=== PATIENT | female | born 1950 ===

== ENCOUNTER 2025-01-02 19:17 | Inpatient (IN) | payer MEDICARE, SELFPAY ==
[2025-01-02] VITALS (16 sets, daily range): BP systolic 99–159; BP diastolic 57–93
[2025-01-02] MEDS: CELEBREX 200 MG PO (14:35)
[2025-01-02] MEDS: TYLENOL 1000 MG PO (14:35)
[2025-01-02] MEDS: NORMOSOL-R/PLASMALYTE-A 1000 IV (14:36)
[2025-01-02] MEDS: EMEND 40 MG PO (14:37)
[2025-01-02 16:11] LABS: ALT (SGPT) 28 U/L (0-35); AST (SGOT) 32 U/L (14-36); Albumin 4.8 g/dl (3.5-5.0); Alkaline Phosphatase 127 U/L (38-126); Blood Urea Nitrogen 23 mg/dl (7-17); Carbon Dioxide 25 mmol/L (22-30); Chloride 105 mmol/L (98-107); Estimated Creatinine Clearance 69 ml/min; Glucose 88 mg/dl (70-99); Potassium 4.4 mmol/L (3.5-5.1); Sodium 140 mmol/L (135-145); Total Bilirubin 0.8 mg/dl (0.2-1.3); Total Protein 7.5 g/dl (6.3-8.2); eGFR > 60.00
[2025-01-02 16:15] LABS: C-Reactive Protein < 5.00 mg/L (0.0-10.00)
[2025-01-02 16:18] LABS: % Basophils 0.7 % (0-2); % Eosinophils 1.1 % (0-6); % Immature Granulocytes 0.3 % (0-0.5); % Lymphocytes 20.3 % (20.5-51.1); % Monocytes 7.9 % (1.7-9.3); % Neutrophils 69.7 % (42.2-75.2); Absolute Basophils 0.1 10^3/uL (0-0.2); Absolute Eosinophils 0.1 10^3/uL (0-0.7); Absolute Lymphocytes 1.5 10^3/uL (1.2-3.4); Absolute Monocytes 0.6 10^3/uL (0.1-0.6); Absolute Neutrophils 5.2 10^3/uL (1.4-6.5); Hematocrit 35.1 % (37.0-47.0); Hemoglobin 12.2 g/dL (12.0-16.0); Mean Corp Hgb Conc. 34.8 g/dL (33.0-37.0); Mean Corpuscular Hgb 31.4 pg (27.0-31.0); Mean Corpuscular Volume 90.2 fL (81.0-99.0); Mean Platelet Volume 10.3 fL (7.4-10.4); Nucleated Red Blood Cells % 0 %; Platelet Count 327 10^3/uL (130-400); Red Blood Cell Count 3.89 10^6/uL (4.20-5.40); Red Cell Dist. Width 12.9 % (11.5-14.5); White Blood Cell Count 7.4 10^3/uL (4.8-10.8)
[2025-01-02 17:02] LABS: Erythrocyte Sed Rate 33 mm/hour (0-20)
--- NOTE | 2025-01-02 17:30 | W.PN.SURGUPD ---
Surgical Update
Surgical Update
Patient is s/p R 2nd toe I&D and hardware explantation
-Packing to R 2nd toe, to remain intact until return to OR
-Return to OR on 01/04
-F/u 1x culture 1x pathology
-Recommend ID consult, recommend vanc/zosyn
-NWB to RLE
-Will continue to follow
--- NOTE | 2025-01-02 17:51 | HPS.HSE ---
Family Physician
-
Family Physician: INTERVIEWE UNKNOWN - PT NOT
Chief Complaint
-
2nd toe pain
History of Present Illness
74yo F with PMHX of GERD, HLD, breast CA, anxiety came for the follow up after her 2nd/3rd hammertoe corrrection with concern for worsening redness and swelling of 2nd toe. Was sent to [facility] for I&D with extraction of intramedullary implant. PeriOP
concern for presumed osteomyelitis without achieved surgical cure. Patient recovering postOP well. Did not report any fevers at home
Medical History
Past Medical History
Past Medical History: Reports Other
Additional Past Medical History:
see HPI
Past Surgical History: Reports Other
Additional Past Surgical History:
HPI
Social History
Tobacco: Non-smoker
Alcohol: None
Drug: None
Family History
Family History: Not pertinent
Allergies / Home Medications
Allergies reflects when Allergies were last updated in [employer].
Home Medications with original date entered in [employer]
Allergy/Medication List:
Allergies
Allergy/AdvReac Type Severity Reaction Status Date / Time
No Known Allergies Allergy Verified 01/02/25 14:17
Home Medications
atorvastatin 40 mg tablet (Lipitor) 40 mg PO DAILY 01/02/25
omeprazole 40 mg capsule,delayed release 40 mg PO DAILY 01/02/25
sertraline 50 mg tablet (Zoloft) 50 mg PO DAILY 01/02/25
tolterodine 2 mg tablet (Detrol) 2 mg PO DAILY 01/02/25
Review of Systems
-
History Source: Patient
A 12 point ROS was completed and negative except as noted: Yes
Physical Exam
Vital Signs
Vital Signs
Temp Pulse Resp BP Pulse Ox
96.9 F L 97 32 147/93 99
01/02/25 17:06 01/02/25 17:15 01/02/25 17:15 01/02/25 17:15 01/02/25 17:15
Physical Exam
General: Well Nourished, No Apparent Distress and Comfortable
HEENT: NormoCephalic, Anicteric and Moist mucous membranes
Respiratory: Clear; No Wheezes, Rales or Rhonchi
Cardiac: S1/S2, Regular Rhythm and Tachycardia
GI: Soft, Non Tender and Non Distended
Genito-urinary: No costovertebral tender
Musculoskeletal: No Clubbing and No Cyanosis
Skin: Warm; No Dry or Rash
Neuro: Awake, Alert, Oriented, AO x 3 and No Motor Deficits
Psych: Calm
Laboratory Results
-
01/02/25 15:44
01/02/25 15:44
Laboratory Results
Total Bilirubin 0.8 mg/dl (0.2-1.3) 01/02/25 15:44
AST 32 U/L (14-36) 01/02/25 15:44
ALT 28 U/L (0-35) 01/02/25 15:44
Alkaline Phosphatase 127 U/L (38-126) H 01/02/25 15:44
Data Reviewed
-
Lab Data: Labs Reviewed by me
Impression/Plan
-
A/P:
#R 2nd toe OM
Bcx
pedning wound Cx
Vanco/Zosyn pending ID consult
pain mgmt
NWB on RLE, use heel for transfers
ESR 33, CRP WNL
PT/OT when possible
Plan for repeated I&D on 01/04/25 by Podiatry
#GERD
#HLD
#Anxiety d/o
cont home meds
DVT ppx lovenox
Full code
I have spent at least 58min reviewing chart,test results, communication with consultants and direct patient care
[2025-01-02] MEDS: SUBLIMAZE 25 MCG IV ×2 (18:30→18:53)
[2025-01-02] MEDS: ZOSYN 50 IV (19:24)
--- NOTE | 2025-01-02 20:00 | PTCARENOTE ---
Pt arrived from PACU in bed. aaox3, drowsy and falls asleep easily. pox 98% in 2L NC. C/o mild r foot pain, states 'it's tolerable'. denies nausea. vss. oriented to room. call bustos within reach.
--- NOTE | 2025-01-02 20:06 | SUR.PHASEI ---
initially needed assist with airway - jaw lift to maintain airway and sats. nasal trumpet and oral airway. restless legs, encouraged to get another KAYLA test. O2 with sleep as sats drop to 85%, Dr Monroy advised and received continuous pulse ox
order. medicated for pain x2 with some relief. visits in pacu. blood cultures drawn and antibiotics started.
--- NOTE | 2025-01-02 20:11 | PHA.VAN.IN ---
Assessment
- Assessment
Renal Function: Unknown baseline
Concomitant Antimicrobials: ZOSYN
- Previous Dosing Experience
Previous Regimen: NONE
AUC Dosing Plan
- Dosing Variables
Dosing Weight (kg): 68
Dosing CrCl (ml/min): 69
Vd coefficient (L/kg): 0.7
- Empiric Dosing
Initial / Loading Dose: 1500MG
Maintenance Regimen: 750MG IV Q12H
Estimated AUC (mcg*h/mL): 527
Estimated Peak (mcg*h/mL): 30.1
Estimated Trough (mcg/ml): 15.3
Estimated Half Life (H): 11.2
Pharmacokinetics Vancomycin I
- -
Patient Age: 74
Patient Sex: Female
Vancomycin Day #: 1
Indication: Bone And Joint ([R] 2ND TOE OM)
Requesting Provider: ASHISH
Height / Weight:
Height 5 ft 3 in
Actual Weight 68 kg
Pertinent Past Medical History: RECENT FOOT SURGERY
- Vital Signs / Lab Results
Temp Pulse Resp BP Pulse Ox
97.3 F 94 18 99/62 99
01/02/25 19:45 01/02/25 19:45 01/02/25 19:45 01/02/25 19:45 01/02/25 19:45
Lab Results - Hematology
01/02/25 01/02/25
14:25 15:44
WBC Cancelled 7.4
Lab Results - Chemistry
01/02/25 01/02/25 01/02/25
14:25 15:20 15:44
BUN Cancelled Cancelled 23 H
Creatinine Cancelled Cancelled 0.6
Estimated Creat Clear Cancelled Cancelled 69
Albumin Cancelled Cancelled 4.8
[2025-01-02] MEDS: VANCOCIN 530 MG IV (20:40)
[2025-01-02] MEDS: LOVENOX 40 MG SC (20:42)
[2025-01-03] MEDS: ZOSYN 50 IV ×4 (01:43→20:41)
[2025-01-03 03:41] VITALS: BP 113/72
[2025-01-03] MEDS: VANCOCIN 150 IV ×2 (05:45→17:42)
[2025-01-03 07:23] LABS: % Basophils 0.1 % (0-2); % Immature Granulocytes 0.4 % (0-0.5); % Lymphocytes 7.4 % (20.5-51.1); % Monocytes 3.9 % (1.7-9.3); % Neutrophils 88.2 % (42.2-75.2); Absolute Lymphocytes 0.7 10^3/uL (1.2-3.4); Absolute Monocytes 0.4 10^3/uL (0.1-0.6); Hematocrit 33.8 % (37.0-47.0); Hemoglobin 11.5 g/dL (12.0-16.0); Mean Corpuscular Hgb 31.5 pg (27.0-31.0); Mean Corpuscular Volume 92.6 fL (81.0-99.0); Mean Platelet Volume 10.5 fL (7.4-10.4); Nucleated Red Blood Cells % 0 %; Platelet Count 322 10^3/uL (130-400); Red Blood Cell Count 3.65 10^6/uL (4.20-5.40); Red Cell Dist. Width 12.9 % (11.5-14.5); White Blood Cell Count 9.1 10^3/uL (4.8-10.8)
[2025-01-03 07:39] VITALS: BP 129/77
[2025-01-03 07:58] LABS: ALT (SGPT) 25 U/L (0-35); AST (SGOT) 29 U/L (14-36); Albumin 3.9 g/dl (3.5-5.0); Alkaline Phosphatase 105 U/L (38-126); Blood Urea Nitrogen 24 mg/dl (7-17); Calcium 9.4 mg/dl (8.4-10.2); Carbon Dioxide 26 mmol/L (22-30); Chloride 105 mmol/L (98-107); Estimated Creatinine Clearance 59 ml/min; Glucose 168 mg/dl (70-99); Iron 100 ug/dl (37-170); Potassium 4.6 mmol/L (3.5-5.1); Sodium 139 mmol/L (135-145); Total Bilirubin 0.5 mg/dl (0.2-1.3); Total Protein 6.4 g/dl (6.3-8.2); eGFR > 60.00
[2025-01-03 08:07] LABS: Percent Saturation 43 % (20-50); Total Iron Binding Capacity 228 ug/dl (265-497)
[2025-01-03 08:20] LABS: TSH 0.38 uIU/ml (0.47-4.68)
[2025-01-03 08:24] LABS: Ferritin 89.7 ng/ml (11.1-264.0)
--- NOTE | 2025-01-03 08:40 | PHA.VAN.FU ---
Vancomycin Assessment / Plan
- Assessment
Renal Function: Stable (0.7)
WBC's are: WNL (9.1)
In the past 24 hrs, patient has been: Afebrile
Concomitant Antimicrobials: Piperacillin/Tazobactam
- Dosing Plan
Continue: Vanco 750mg Q12H through 01/03/25 1800 dose
Adjust Regimen to: Vanco 1250mg Q24H Starting 01/04/25 0600
- Monitoring Plan
No level(s) ordered at this time: Consider in the next few days
- Follow Up
Pharmacy will continue to follow.
Vancomycin Follow UP
- -
Patient Age: 74
Patient Sex: Female
Vancomycin Day #: 2
Indication: Bone And Joint ([R] 2ND TOE OM)
Requesting Provider: ASHISH
Height / Weight:
Height 5 ft 3 in
Actual Weight 68 kg
Pertinent Past Medical History: RECENT FOOT SURGERY
- Vital Signs / Lab Results
Temp Pulse Resp BP Pulse Ox
98.0 F 88 20 129/77 95
01/03/25 07:39 01/03/25 07:39 01/03/25 07:39 01/03/25 07:39 01/03/25 07:39
Lab Results - Hematology
01/02/25 01/02/25 01/03/25
14:25 15:44 06:39
WBC Cancelled 7.4 9.1
Lab Results - Chemistry
01/02/25 01/02/25 01/02/25
14:25 15:20 15:44
BUN Cancelled Cancelled 23 H
Creatinine Cancelled Cancelled 0.6
Estimated Creat Clear Cancelled Cancelled 69
Albumin Cancelled Cancelled 4.8
01/03/25
06:39
BUN 24 H
Creatinine 0.7
Estimated Creat Clear 59
Albumin 3.9
[2025-01-03] MEDS: LIPITOR 40 MG PO (09:02)
[2025-01-03] MEDS: PROTONIX 40 MG PO (09:02)
--- NOTE | 2025-01-03 09:55 | W.PN.SURGUPD ---
Surgical Update
Surgical Update
74 yo F s/p right 2nd toe I&D and hardware explanation
-Will assess patient at bedside this afternoon
-Plan for OR 4/3 for repeat washout, possible closure
-Antibiotics per ID recs
-Please make patient NPO after midnight
[2025-01-03 09:57] LABS: Free T3 2.84 pg/ml (2.77-5.27); Free T4 1.15 ng/dl (0.78-2.19)
--- NOTE | 2025-01-03 10:11 | W.PN.HOSP.TC ---
Today's Communication/Plan
-
I&D in AM
cont Abx
Assessment / Plan
Assessment / Plan
74yo F with PMHX of GERD, HLD, breast CA, anxiety came for the follow up after her /3rd hammertoe corrrection with concern for worsening redness and swelling of 2nd toe. Was sent to [facility] for I&D with extraction of intramedullary implant. PeriOP
concern for presumed osteomyelitis without achieved surgical cure. XR concerning for OM due to partial erosion of the distal aspect of the proximal phalanx of the 2nd toe of the R foot
A/P:
#R 2nd toe OM
Bcx NTD
pedning wound Cx
Vanco/Zosyn pending ID consult
pain mgmt
NWB on RLE, use heel for transfers
ESR 33, CRP WNL
PT/OT when possible
Plan for repeated I&D on 01/04/25 by Podiatry
#Subclinical hyperthyrooidism
Minimally supressed TSH 0.38 - repeat TFT in 2-3 weeks
no need in medications as asymptomatic
#GERD
#HLD
#Anxiety d/o
cont home meds
DVT ppx lovenox
Full code
I have spent at least 38min reviewing chart,test results, communication with consultants and direct patient care
Anticipated Discharge: > 48 hours
Subjective/Interval History
-
Date of Service: January 03, 2025
Objective Data
-
Labs:
Laboratory Results
01/03/25
06:39
WBC 9.1
Hgb 11.5 L
Hct 33.8 L
Plt Count 322
Sodium 139
Potassium 4.6
Chloride 105
Carbon Dioxide 26
BUN 24 H
Creatinine 0.7
Glucose 168 H
Calcium 9.4
Total Bilirubin 0.5
AST 29
ALT 25
Alkaline Phosphatase 105
Vital Signs:
Vital Signs
Temp Pulse Resp BP Pulse Ox
98.0 F 88 20 129/77 95
01/03/25 07:39 01/03/25 07:39 01/03/25 07:39 01/03/25 07:39 01/03/25 07:39
I&O
01/02/25 01/03/25 01/04/25
06:59 06:59 06:59
Intake Total 650 / 650
Balance 650 / 650
Review of Systems
-
History Source: Patient
All other systems: Reviewed and negative
Physical Exam
-
General: No Apparent Distress
HEENT: Normocephalic
Cardiac: Regular Rhythm
GI: Soft, Nontender and Nondistended
Skin: Warm
Neuro: Awake, Alert, Oriented and AO x 3
Psych: Calm
--- NOTE | 2025-01-03 10:52 | CON.ID ---
Consultation
-
Date/Time Consultation Requested: 01/02/25 18:14
Date/Time Consultation Performed: 01/03/25 10:57
Requesting Provider: Dr Brown
Performing Provider: Dr Ruano
Reason for Consultation: r 2nd toe OM
Chief Complaint / Past History
Chief Complaint
right 2nd toe pain
History of Present Illness
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
weeks, no fevers or chills and was taken for I&D and extraction of intramedullary implant in same day surgery. Of note she was on cefadorxil x1 week without improvement before the decision was made to return to the OR. Perioperatively there was
concern for possible osteomyelitis.
Since arrival here he's been afebrile, bp stable, wbc 7.4 now 9.1, hgb 11.5, plt 322, L shift is noted on post op day 1, cr 0.7, crp <5, ESR 33, a1c, 01/02 foot xr: mild swelling along the second toe with partial erosion of the distal aspect of the
proximal phalanx of the second toe. These findings may be postoperative in nature although can be seen with osteomyelitis. wound culture obtained in the OR gram stain few wbc no organisms, culture pending, Plan for OR 01/04 for repeat washout,
possible closure, patient is currently on vancomycin and zosyn, ID is consulted for assistance with management.
Past History
Additional Past Medical History:
GERD, HLD, breast CA, anxiety
Additional Past Surgical History:
see hpi
Allergy History:
No Known Allergies Allergy (Verified 01/02/25 14:17)
Medications Reviewed: Yes
Social History
Tobacco: Non-Smoker
Alcohol: None
Drug: None
Family History
Family History: Not Pertinent
Review of Systems
Review of Systems
General: Negative Fever or Chills
All systems: All other systems were reviewed and were negative
Vital Signs
Temp Pulse Resp BP Pulse Ox
98.0 F 88 20 129/77 95
01/03/25 07:39 01/03/25 07:39 01/03/25 07:39 01/03/25 07:39 01/03/25 07:39
Physical Exam
Physical Exam
Constitutional: No Acute Distress
Cardiovascular: Regular Rate and S1/S2; Negative Murmur or Rub
Pulmonary: Clear and Symmetric; Negative Wheezes, Rales or Rhonchi
Gastrointestinal: Soft, Non Tender, Non Distended and Normal Bowel Sounds
Skin: Warm and Dry; Negative Rash or Jaundice
Wound: Other (dressing clean, dry, intact; did not remove as per postop instructions)
Lab / Diagnostic Study Results
01/03/25 06:39
01/03/25 06:39
Abs Immat Gran (auto) 0.0 10^3/uL (0-0.05) 01/03/25 06:39
Absolute Neuts (auto) 8.0 10^3/uL (1.4-6.5) H 01/03/25 06:39
Absolute Lymphs (auto) 0.7 10^3/uL (1.2-3.4) L 01/03/25 06:39
Absolute Monos (auto) 0.4 10^3/uL (0.1-0.6) 01/03/25 06:39
Absolute Basos (auto) 0.0 10^3/uL (0-0.2) 01/03/25 06:39
Immature Gran % 0.4 % (0-0.5) 01/03/25 06:39
Neutrophils % 88.2 % (42.2-75.2) H 01/03/25 06:39
Lymphocytes % 7.4 % (20.5-51.1) L 01/03/25 06:39
Monocytes % 3.9 % (1.7-9.3) 01/03/25 06:39
Eosinophils % 0.0 % (0-6) 01/03/25 06:39
Basophils % 0.1 % (0-2) 01/03/25 06:39
ESR 33 mm/hour (0-20) H 01/02/25 15:44
C-Reactive Protein < 5.00 mg/L (0.0-10.00) 01/02/25 15:44
Microbiology Results
Micro:
01/02/25 16:14 Wound Culture - Pending
Foot - Right Gram Stain - Preliminary
01/02/25 18:58 Blood Culture - Pending
Blood/Venous
01/02/25 18:44 Blood Culture - Pending
Blood/Venous
01/02/25 16:14 Anaerobic Culture - Pending
Foot - Right
Assessment / Plan
Possible osteomyelitis of the right 2nd toe
- hardwear has been removed
- note recent course of cefadroxil
- will follow up cultures: OR and blood
- check a1c
- note plans for return to OR 4/3 for repeat washout, possible closure
- agree with vancomycin and zosyn
- likely PICC placement tomorrow if blood cultures remain negative
- anticipate a course of home IV antibiotics x6 weeks
--- NOTE | 2025-01-03 11:02 | CM ---
Patient seen bedside, initial assessment completed. Patient is a 74yo F with PMHX of GERD, HLD, breast CA, anxiety came for the follow up after her 2nd/3rd hammertoe corrrection with concern for worsening redness and swelling of 2nd toe.
Patient reports that she resides w/ spouse in [place]- 12 steps to enter. Patient is independent w/ ambulation, no device required. Patient is independent w/ ADLs. No DME identified. 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 Denies SNF/HC hx. OP therapy in the past.
Address, point of contact and insurance verified. Patient's spouse's information clarified and updated w/ admissions
PCP: Adam Lu- provided to admissions to update
Pharmacy: [facility]
Vanco/Zosyn pending ID consult
PT/OT when able
Plan: CM will cont to follow for d/c needs
[2025-01-03] MEDS: DETROL 2 MG PO (11:06)
[2025-01-03 12:28] VITALS: BP 135/77
[2025-01-03 13:07] LABS: Glycohemoglobin (HgbA1c) 5.7 % (4.0-5.6)
[2025-01-03 15:47] VITALS: BP 118/67
[2025-01-03] MEDS: LOVENOX 40 MG SC (17:42)
[2025-01-03 19:20] VITALS: BP 117/66
[2025-01-03] MEDS: FLUSH (NSS) 2 FLUSH IV (20:41)
[2025-01-03] MEDS: ZOLOFT 50 MG PO (21:55)
[2025-01-03 23:21] VITALS: BP 147/83
[2025-01-04] VITALS (14 sets, daily range): BP systolic 110–157; BP diastolic 58–88
[2025-01-04] MEDS: ZOSYN 50 IV ×3 (01:05→20:22)
[2025-01-04] MEDS: VANCOCIN 275 MG IV (06:16)
--- NOTE | 2025-01-04 08:07 | PHA.VAN.FU ---
Vancomycin Assessment / Plan
- Assessment
Renal Function: No New Labs Today (Past two days SCr 0.6, 0.7)
WBC's are: WNL (No new labs today, past two days 7.4, 9.1)
In the past 24 hrs, patient has been: Afebrile
Concomitant Antimicrobials: Piperacillin/Tazobactam
- Dosing Plan
Continue: Vanco 1250mg Q24H
- Monitoring Plan
No level(s) ordered at this time: Consider in the next few days
- Follow Up
Pharmacy will continue to follow.
Vancomycin Follow UP
- -
Patient Age: 74
Patient Sex: Female
Vancomycin Day #: 3
Indication: Bone And Joint ([R] 2ND TOE OM)
Requesting Provider: ASHISH
Height / Weight:
Height 5 ft 3 in
Actual Weight 68 kg
Pertinent Past Medical History: RECENT FOOT SURGERY
- Vital Signs / Lab Results
Temp Pulse Resp BP Pulse Ox
98 F 80 16 144/88 98
01/04/25 07:26 01/04/25 07:26 01/04/25 07:26 01/04/25 07:26 01/04/25 07:26
Lab Results - Hematology
01/02/25 01/02/25 01/03/25
14:25 15:44 06:39
WBC Cancelled 7.4 9.1
Lab Results - Chemistry
01/02/25 01/02/25 01/02/25
14:25 15:20 15:44
BUN Cancelled Cancelled 23 H
Creatinine Cancelled Cancelled 0.6
Estimated Creat Clear Cancelled Cancelled 69
Albumin Cancelled Cancelled 4.8
01/03/25
06:39
BUN 24 H
Creatinine 0.7
Estimated Creat Clear 59
Albumin 3.9
Microbiology Results
01/02/25 18:58 Blood Culture - Preliminary
Blood/Venous No Growth in 24 hours- Final report to follow
01/02/25 18:44 Blood Culture - Preliminary
Blood/Venous No Growth in 24 hours- Final report to follow
01/02/25 16:14 Anaerobic Culture - Preliminary
Foot - Right Culture pending. Anaerobic cultures are examined after 3
days incubation. Additional information to follow.
01/02/25 16:14 Wound Culture - Preliminary
Foot - Right No growth
Gram Stain - Preliminary
--- NOTE | 2025-01-04 09:06 | W.PN.ID1 ---
Date of Service
Date of Service: January 04, 2025
Today's Communication
- agree with vancomycin and zosyn
- PICC placement when feasible
- anticipate a course of home IV antibiotics x6 weeks
Assessment / Plan
Possible osteomyelitis of the right 2nd toe
- hardwear removed 01/02
- note recent course of cefadroxil
- will follow up cultures: OR and blood - no growth to date
- a1c borderline prediabetic
- MRSA nasal screen
- note plans for return to OR today for repeat washout, possible closure
- agree with vancomycin and zosyn
- PICC placement when feasible
- anticipate a course of home IV antibiotics x6 weeks
Chief Complaint
-: Other (osteomyelitis)
Subjective / Review of Systems
afebrile
bp stable
Vital Signs / Physical Exam
Vital Signs
Vital Signs
Temp Pulse Resp BP Pulse Ox
98 F 80 16 144/88 98
01/04/25 07:26 01/04/25 07:26 01/04/25 07:26 01/04/25 07:26 01/04/25 07:26
Physical Exam
Constitutional: No Acute Distress
Cardiovascular: Regular Rate and S1/S2; Negative Murmur or Rub
Pulmonary: Clear and Symmetric; Negative Wheezes or Rales
Gastrointestinal: Soft, Non Tender, Non Distended and Normal Bowel Sounds
Skin: Warm and Dry; Negative Rash or Jaundice
Objective Data
Lab Data
Lab Results
01/03/25 06:39
01/03/25 06:39
ESR 33 mm/hour (0-20) H 01/02/25 15:44
Estimated Creat Clear 59 ml/min 01/03/25 06:39
Total Bilirubin 0.5 mg/dl (0.2-1.3) 01/03/25 06:39
AST 29 U/L (14-36) 01/03/25 06:39
ALT 25 U/L (0-35) 01/03/25 06:39
Alkaline Phosphatase 105 U/L (38-126) 01/03/25 06:39
C-Reactive Protein < 5.00 mg/L (0.0-10.00) 01/02/25 15:44
Most recent labs reviewed.
Micro Results:
01/02/25 18:58 Blood Culture - Preliminary
Blood/Venous No Growth in 24 hours- Final report to follow
01/02/25 18:44 Blood Culture - Preliminary
Blood/Venous No Growth in 24 hours- Final report to follow
01/02/25 16:14 Anaerobic Culture - Preliminary
Foot - Right Culture pending. Anaerobic cultures are examined after 3
days incubation. Additional information to follow.
01/02/25 16:14 Wound Culture - Preliminary
Foot - Right No growth
Gram Stain - Preliminary
[2025-01-04] MEDS: PROTONIX 40 MG PO (09:29)
[2025-01-04] MEDS: LIPITOR 40 MG PO (09:29)
--- NOTE | 2025-01-04 09:42 | W.PN.HOSP.TC ---
Today's Communication/Plan
-
for I&D
cont Abx
Assessment / Plan
Assessment / Plan
74yo F with PMHX of GERD, HLD, breast CA, anxiety came for the follow up after her / hammertoe corrrection with concern for worsening redness and swelling of 2nd toe. Was sent to [facility] for I&D with extraction of intramedullary implant. PeriOP
concern for presumed osteomyelitis without achieved surgical cure. XR concerning for OM due to partial erosion of the distal aspect of the proximal phalanx of the 2nd toe of the R foot. ID recommending 6 weeks of IV abx
A/P:
#R 2nd toe OM
Bcx NTD
pedning wound Cx
Vanco/Zosyn
ID consult: plan for 6 weeks of Abx - final regimen to be determined
pain mgmt
NWB on RLE, use heel for transfers
ESR 33, CRP WNL
PT/OT when possible
Plan for repeated I&D on 01/04/25 by Podiatry
#Subclinical hyperthyrooidism
Minimally supressed TSH 0.38 - repeat TFT in 2-3 weeks
no need in medications as asymptomatic
#GERD
#HLD
#Anxiety d/o
cont home meds
DVT ppx lovenox
Full code
I have spent at least 38min reviewing chart,test results, communication with consultants and direct patient care
Anticipated Discharge: > 48 hours
Subjective/Interval History
-
Date of Service: January 04, 2025
Objective Data
-
Vital Signs:
Vital Signs
Temp Pulse Resp BP Pulse Ox
98 F 80 16 144/88 98
01/04/25 07:26 01/04/25 07:26 01/04/25 07:26 01/04/25 07:26 01/04/25 07:26
I&O
01/03/25 01/04/25 01/05/25
06:59 06:59 06:59
Intake Total 650 / 650 990 / 990
Output Total 750 / 750
Balance 650 / 650 240 / 240
Review of Systems
-
History Source: Patient
All other systems: Reviewed and negative
Physical Exam
-
General: No Apparent Distress and Comfortable
HEENT: Normocephalic
Respiratory: Clear to Auscultation
GI: Soft, Nontender and Nondistended
Musculoskeletal: No Clubbing, No Cyanosis and No Edema
Neuro: Awake, Alert, Oriented and AO x 3
Psych: Calm
[2025-01-04] MEDS: DETROL 2 MG PO (10:23)
--- NOTE | 2025-01-04 13:06 | PTCARENOTE ---
pt sent to OR with family antibiotic and all belongings.
--- NOTE | 2025-01-04 14:23 | W.PN.SURGUPD ---
Surgical Update
Surgical Update
74 yo F s/p right 2nd toe washout, partial closure
-Dressings to remain C/D/I
-Patient will need 6 weeks of antibiotics, appreciate ID input
-Heel WBAT to RLE with surgical shoe
-PT/OT
-Upon discharge, will need home nursing dressing changes as follows:
3x weekly dressing changes with 1/4 inch packing (iodoform if possible) to proximal 2nd toe wound with 4x4 gauze pads, radha wrap, JOSIANE bandage
-Patient to follow up at [facility] as scheduled on 01/09.
[2025-01-04] MEDS: ZOSYN IV (14:39)
--- NOTE | 2025-01-04 15:04 | CM ---
CM following re: discharge planning.
Reviewed pt's chart,met with pt. Pt's and 2 children at bedside.
Per he and the pt were born and grew up in [place], emig[place] [facility] [facility] years ago and resided in [facility]. Per RN, pt will need 6 weeks of IV antibiotics and pt went to OR today.
CM had a meeting with pt's family in a waiting area, options of discharge plan discussed: home with home infusion therapy and VN services vs SNF. Pt's family expressed their appreciation and daughters stated that probably home with IV infusion
therapy and VN services will be preferred choice. Anyway they will tour [facility], [facility] and [facility].
D/C plan: home with home infusion therapy and VN services vs SNF. Family has SNF list.
CM will follow with discharge plan updates as hospitalization progresses
[2025-01-04] MEDS: LOVENOX 40 MG SC (17:12)
--- NOTE | 2025-01-04 17:43 | PTCARENOTE ---
Received pt from PACU, VSS, AAOx3, dressing with known old bloody drainage. Diet reordered, pt oriented to room and call bustos, pt resting comfortably in bed with family at bedside. No new orders at this time.
[2025-01-04] MEDS: ZOLOFT 50 MG PO (21:59)
[2025-01-05] VITALS (9 sets, daily range): BP systolic 132–176; BP diastolic 73–103; PULSE 98; O2SAT 100
[2025-01-05] MEDS: ZOSYN 50 IV ×2 (02:09→07:48)
[2025-01-05] MEDS: DETROL 2 MG PO (07:47)
[2025-01-05] MEDS: LIPITOR 40 MG PO (07:47)
[2025-01-05] MEDS: PROTONIX 40 MG PO (07:48)
[2025-01-05] MEDS: TYLENOL 650 MG PO ×3 (07:48→19:29)
--- NOTE | 2025-01-05 08:55 | PN.CDI ---
CDI
- -
CDI:
Physician Documentation Request
Admit Date: 01/02/25 19:17
Dear Doctor Jesus,
Patient admitted with right toe infection.
H&P: 'came for the follow up after her /3rd hammertoe correction with concern for worsening redness and swelling of 2nd toe. Was sent to [facility] for I&D with extraction of intramedullary implant. PeriOP concern for presumed osteomyelitis without
achieved surgical cure.'
01/02 Operative note: 'The previous incision was opened and notable purulent material was present...Presumed acute osteomyelitis of right 2nd toe.'
Please clarify the following:
Osteomyelitis is a complication of the surgery
Osteomyelitis is unexpected but is NOT a complication of the surgery
Osteomyelitis is an expected occurrence and is not a complication of surgery
Osteomyelitis is inherent to/unavoidable during the surgery and is not a complication
Other
Use of terms such as suspected, likely, concern for, or probable (associated with a specific diagnosis that is being evaluated, monitored, or treated as if it exists) are acceptable and can be coded in the inpatient setting, when documented at the
time of discharge.
Thank you,
Yashira Tian RN, BSN
CDI Specialist
Available via [place] text
Please use your independent medical judgment in providing your response.
[2025-01-05] MEDS: VANCOCIN 275 MG IV (09:46)
--- NOTE | 2025-01-05 10:38 | W.PN.HOSP.TC ---
Today's Communication/Plan
-
as pr ID - still awaiting culture finalization before final Abx selection
PICC appropriately placed
Assessment / Plan
Assessment / Plan
74yo F with PMHX of GERD, HLD, breast CA, anxiety came for the follow up after her 2nd/3rd hammertoe corrrection with concern for worsening redness and swelling of 2nd toe. Was sent to [facility] for I&D with extraction of intramedullary implant. PeriOP
concern for presumed osteomyelitis without achieved surgical cure. XR concerning for OM due to partial erosion of the distal aspect of the proximal phalanx of the 2nd toe of the R foot. ID recommending 6 weeks of IV abx, pending final Cx
A/P:
#R 2nd toe OM
Bcx NTD
pedning wound Cx
Vanco/Zosyn
ID consult: plan for 6 weeks of Abx - final regimen to be determined
pain mgmt
NWB on RLE, use heel for transfers
ESR 33, CRP WNL
PT/OT when possible
repeated I&D on 01/04/25 by Podiatry
#Subclinical hyperthyroidism
Minimally suppressed TSH 0.38 - repeat TFT in 2-3 weeks
no need in medications as asymptomatic
#GERD
#HLD
#Anxiety d/o
cont home meds
DVT ppx lovenox
Full code
I have spent at least 38min reviewing chart,test results, communication with consultants and direct patient care
Anticipated Discharge: 24 - 48 hours
Subjective/Interval History
-
Date of Service: January 05, 2025
Objective Data
-
Vital Signs:
Vital Signs
Temp Pulse Resp BP Pulse Ox
97.7 F 91 16 152/95 97
01/05/25 07:15 01/05/25 09:25 01/05/25 07:15 01/05/25 09:25 01/05/25 07:15
I&O
01/04/25 01/05/25 01/06/25
06:59 06:59 06:59
Intake Total 990 / 990 730 / 730
Output Total 750 / 750
Balance 240 / 240 730 / 730
Review of Systems
-
History Source: Patient
All other systems: Reviewed and negative
Physical Exam
-
General: No Apparent Distress
HEENT: Normocephalic
Cardiac: Regular Rhythm
GI: Soft, Nontender and Nondistended
Neuro: Awake, Alert, Oriented and AO x 3
Psych: Calm
--- NOTE | 2025-01-05 11:29 | CM ---
Patient seen bedside.
Patient will be on home IV anbx.
Discussed agencies with patient and spouse.
Agreeable to [facility] and [facility].
Spoke with ID, waiting on final culture results for medications.
Patient has Medicare, [employer] and [employer] prescription plan which is a retiree benefit from , [facility] may have to call them, the policy is different from standard part D.
Spoke with Mony from [facility], faxed over referral with current anbx just so costs could be run, will send script once available.
Script also faxed to [facility].
PICC info also faxed.
Per ID anbx may change depending on sensitivities, [facility] aware.
Plan: home with IV anbx thru [facility] and nursing thru [facility], referral placed.
--- NOTE | 2025-01-05 12:00 | W.PN.ID1 ---
Date of Service
Date of Service: January 05, 2025
Today's Communication
- To expedite discharge next week, submitted Home Infusion Sheet to case management, to get process going.
- TENTATIVE antibiotics: Daptomycin 500mg IV q24h and ceftriaxone 2g IV q24 through 02/12/25.
Check CK.
Hold statin while on Daptomycin.
- Informed patient and case management that final home IV antibiotics may change based on CoNS susceptibility data.
Assessment / Plan
Acute osteomyelitis of the right 2nd toe
- hardware removed 01/02
- note recent course of doxycycline and cefadroxil
-blood - no growth to date
- MRSA nasal screen negative
- 01/02 bone biopsy path acute osteomyelitis
- 01/02 OR cx: rare CoNS (of note pt on outpatient abx)
Asked micro to work up sensitivities.
CoNS often considered contaminant, but tends to infect hardware
- To expedite discharge next week, submitted Home Infusion Sheet to case management, to get process going.
- TENTATIVE abx's: Daptomycin 500mg IV q24h and ceftriaxone 2g IV q24 through 02/12/25.
Check CK.
Hold statin while on Daptomycin.
- Informed patient and case management that final home IV antibiotic may change based on CoNS susceptibility data.
Chief Complaint
-: Other (osteomyelitis)
Subjective / Review of Systems
Patient understands she will not be discharged today.
and daughter at bedside.
Vital Signs / Physical Exam
Vital Signs
Vital Signs
Temp Pulse Resp BP Pulse Ox
97.7 F 91 16 152/95 97
01/05/25 07:15 01/05/25 09:25 01/05/25 07:15 01/05/25 09:25 01/05/25 07:15
Physical Exam
Constitutional: No Acute Distress
Cardiovascular: Regular Rate and S1/S2
Pulmonary: Clear
Gastrointestinal: Soft, Non Tender, Non Distended and Normal Bowel Sounds
Extremities: Negative Edema
Neurological: AO x 3
Lines: PICC (LUE)
Objective Data
Lab Data
Lab Results
01/03/25 06:39
01/03/25 06:39
ESR 33 mm/hour (0-20) H 01/02/25 15:44
Estimated Creat Clear 59 ml/min 01/03/25 06:39
Total Bilirubin 0.5 mg/dl (0.2-1.3) 01/03/25 06:39
AST 29 U/L (14-36) 01/03/25 06:39
ALT 25 U/L (0-35) 01/03/25 06:39
Alkaline Phosphatase 105 U/L (38-126) 01/03/25 06:39
C-Reactive Protein < 5.00 mg/L (0.0-10.00) 01/02/25 15:44
Most recent labs reviewed.
Micro Results:
01/02/25 16:14 Wound Culture - Preliminary
Foot - Right Coagulase neg. staphylococcus
Gram Stain - Preliminary
01/02/25 16:14 Anaerobic Culture - Preliminary
Foot - Right Culture pending. Anaerobic cultures are examined after 3
days incubation. Additional information to follow.
01/02/25 18:58 Blood Culture - Preliminary
Blood/Venous No Growth in 48 hours- Final report to follow
01/02/25 18:44 Blood Culture - Preliminary
Blood/Venous No Growth in 48 hours- Final report to follow
01/04/25 09:35 Nasal Screen MRSA (PCR) - Final
Nose MRSA not detected - performed by PCR methodology.
Care Review
Plan reviewed with: Physician (Dr. Brown) and Other (Case management. )
[2025-01-05] MEDS: VISBIOME 2 CAP PO (13:04)
[2025-01-05] MEDS: STERILE WATER FOR INJECTION 20 ML IV (13:08)
[2025-01-05] MEDS: ROCEPHIN 2000 MG IV (13:08)
[2025-01-05] MEDS: CUBICIN 10 MG IV (15:07)
--- NOTE | 2025-01-05 17:14 | W.PN.SURGUPD ---
Surgical Update
Surgical Update
74 yo F s/p right 2nd toe washout, partial closure
-Patient seen and evaluated at bedside. Dressings to remain C/D/I until 01/07
-Patient will need 6 weeks of antibiotics, appreciate ID input
-Heel WBAT to RLE with surgical shoe
-PT/OT
-Dressings to be changed on 01/07 by nursing, see following wound care instructions:
3x weekly dressing changes with 1/4 inch packing (iodoform if possible) to proximal 2nd toe wound with 4x4 gauze pads, radha wrap, JOSIANE bandage
-Patient to follow up at [facility] as scheduled on 01/09.
[2025-01-05] MEDS: LOVENOX 40 MG SC (18:32)
[2025-01-05] MEDS: ZOLOFT 50 MG PO (22:10)
[2025-01-06] MEDS: TYLENOL 650 MG PO ×4 (01:55→20:11)
[2025-01-06 05:28] LABS: % Basophils 0.7 % (0-2); % Eosinophils 2.6 % (0-6); % Immature Granulocytes 0.5 % (0-0.5); % Neutrophils 57.2 % (42.2-75.2); Absolute Basophils 0.1 10^3/uL (0-0.2); Absolute Eosinophils 0.2 10^3/uL (0-0.7); Absolute Lymphocytes 2.8 10^3/uL (1.2-3.4); Absolute Monocytes 0.6 10^3/uL (0.1-0.6); Absolute Neutrophils 5.1 10^3/uL (1.4-6.5); Hematocrit 31.5 % (37.0-47.0); Hemoglobin 10.6 g/dL (12.0-16.0); Mean Corp Hgb Conc. 33.7 g/dL (33.0-37.0); Mean Corpuscular Hgb 31.3 pg (27.0-31.0); Mean Corpuscular Volume 92.9 fL (81.0-99.0); Mean Platelet Volume 10.1 fL (7.4-10.4); Nucleated Red Blood Cells % 0 %; Platelet Count 299 10^3/uL (130-400); Red Blood Cell Count 3.39 10^6/uL (4.20-5.40); Red Cell Dist. Width 13.2 % (11.5-14.5); White Blood Cell Count 8.8 10^3/uL (4.8-10.8)
[2025-01-06 05:53] LABS: ALT (SGPT) 44 U/L (0-35); AST (SGOT) 55 U/L (14-36); Albumin 3.6 g/dl (3.5-5.0); Alkaline Phosphatase 103 U/L (38-126); Blood Urea Nitrogen 22 mg/dl (7-17); Calcium 9.4 mg/dl (8.4-10.2); Carbon Dioxide 30 mmol/L (22-30); Chloride 105 mmol/L (98-107); Creatine Phosphokinase 25 U/L (30-135); Estimated Creatinine Clearance 59 ml/min; Glucose 79 mg/dl (70-99); Potassium 4.6 mmol/L (3.5-5.1); Sodium 142 mmol/L (135-145); Total Bilirubin 0.3 mg/dl (0.2-1.3); Total Protein 6.1 g/dl (6.3-8.2); eGFR > 60.00
[2025-01-06 07:57] VITALS: BP 167/96
[2025-01-06] MEDS: VISBIOME 2 CAP PO (08:14)
[2025-01-06] MEDS: PROTONIX 40 MG PO (08:14)
[2025-01-06] MEDS: DETROL 2 MG PO (08:14)
--- NOTE | 2025-01-06 11:04 | W.PN.HOSP.TC ---
Today's Communication/Plan
-
cont ABx
Assessment / Plan
Assessment / Plan
74yo F with PMHX of GERD, HLD, breast CA, anxiety came for the follow up after her 2nd/3rd hammertoe corrrection with concern for worsening redness and swelling of 2nd toe. Was sent to [facility] for I&D with extraction of intramedullary implant. PeriOP
concern for presumed osteomyelitis without achieved surgical cure. XR concerning for OM due to partial erosion of the distal aspect of the proximal phalanx of the 2nd toe of the R foot. ID recommending 6 weeks of IV abx, pending final Cx
sensitivities as advised by ID
A/P:
#R 2nd toe OM
Bcx NTD
wound Cx - Staph coag neg, pending sensitivity
Vanco/Zosyn
ID consult: plan for 6 weeks of Abx - final regimen to be determined, prelim - Rocephin and Dapto.CPK wnl, statin stopped
pain mgmt
NWB on RLE, use heel for transfers
ESR 33, CRP WNL
PT/OT when possible
repeated I&D on 01/04/25 by Podiatry
#Subclinical hyperthyroidism
Minimally suppressed TSH 0.38 - repeat TFT in 2-3 weeks
no need in medications as asymptomatic
#GERD
#HLD
#Anxiety d/o
cont home meds
DVT ppx lovenox
Full code
I have spent at least 38min reviewing chart,test results, communication with consultants and direct patient care
Anticipated Discharge: 24 - 48 hours
Subjective/Interval History
-
Date of Service: January 06, 2025
Objective Data
-
Labs:
Laboratory Results
01/06/25
04:52
WBC 8.8
Hgb 10.6 L
Hct 31.5 L
Plt Count 299
Sodium 142
Potassium 4.6
Chloride 105
Carbon Dioxide 30
BUN 22 H
Creatinine 0.7
Glucose 79
Calcium 9.4
Total Bilirubin 0.3
AST 55 H
ALT 44 H
Alkaline Phosphatase 103
Vital Signs:
Vital Signs
Temp Pulse Resp BP Pulse Ox
97.6 F 81 16 167/96 100
01/06/25 07:57 01/06/25 07:57 01/06/25 07:57 01/06/25 07:57 01/06/25 07:57
I&O
01/05/25 01/06/25 01/07/25
06:59 06:59 06:59
Intake Total 730 / 730 1460 / 1460
Balance 730 / 730 1460 / 1460
Review of Systems
-
History Source: Patient
All other systems: Reviewed and negative
Physical Exam
-
General: No Apparent Distress
Respiratory: Clear to Auscultation
Cardiac: Regular Rhythm
GI: Soft, Nontender and Nondistended
Musculoskeletal: No Clubbing, No Cyanosis and No Edema
Neuro: Awake, Alert, Oriented and AO x 3
Psych: Calm
--- NOTE | 2025-01-06 11:38 | W.PN.ID1 ---
Date of Service
Date of Service: January 06, 2025
Today's Communication
Continue current antibiotics.
Assessment / Plan
Acute osteomyelitis of the right 2nd toe
- hardware removed 01/02/25
- note recent course of doxycycline and cefadroxil
-blood - no growth to date
- MRSA nasal screen negative
- 01/02 bone biopsy path : acute osteomyelitis
- 01/02 OR cx: rare CoNS (of note pt on outpatient abx)
Awaiting susceptibilities.
CoNS often considered contaminant, but tends to infect hardware
- To expedite discharge next week, submitted Home Infusion Sheet to case management, to get process going.
- TENTATIVE abx's: Daptomycin 500mg IV q24h and ceftriaxone 2g IV q24 through 02/12/25.
Check CK.
Hold statin while on Daptomycin.
- Informed patient and case management that final home IV antibiotic may change based on CoNS susceptibility data.
Chief Complaint
-: Other (osteomyelitis)
Subjective / Review of Systems
Review of Systems: No Fever and No Chills
Vital Signs / Physical Exam
Vital Signs
Vital Signs
Temp Pulse Resp BP Pulse Ox
97.6 F 81 16 167/96 100
01/06/25 07:57 01/06/25 07:57 01/06/25 07:57 01/06/25 07:57 01/06/25 07:57
Physical Exam
Constitutional: No Acute Distress
Pulmonary: Clear and Non Labored
Gastrointestinal: Non Distended
Extremities: Negative Edema
Wound: Other (Right foot wrapped in Pratik wrap. No strikethrough.)
Neurological: AO x 3
Lines: PICC (LUE)
Objective Data
Lab Data
Lab Results
01/06/25 04:52
01/06/25 04:52
ESR 33 mm/hour (0-20) H 01/02/25 15:44
Estimated Creat Clear 59 ml/min 01/06/25 04:52
Total Bilirubin 0.3 mg/dl (0.2-1.3) 01/06/25 04:52
AST 55 U/L (14-36) H 01/06/25 04:52
ALT 44 U/L (0-35) H 01/06/25 04:52
Alkaline Phosphatase 103 U/L (38-126) 01/06/25 04:52
C-Reactive Protein < 5.00 mg/L (0.0-10.00) 01/02/25 15:44
Most recent labs reviewed.
Micro Results:
01/02/25 18:58 Blood Culture - Preliminary
Blood/Venous No Growth in 72 hours- Final report to follow
01/02/25 18:44 Blood Culture - Preliminary
Blood/Venous No Growth in 72 hours- Final report to follow
01/02/25 16:14 Anaerobic Culture - Preliminary
Foot - Right NO ANAEROBES ISOLATED
01/02/25 16:14 Wound Culture - Preliminary
Foot - Right Coagulase neg. staphylococcus
Gram Stain - Preliminary
01/04/25 09:35 Nasal Screen MRSA (PCR) - Final
Nose MRSA not detected - performed by PCR methodology.
[2025-01-06] MEDS: STERILE WATER FOR INJECTION 20 ML IV (14:35)
[2025-01-06] MEDS: ROCEPHIN 2000 MG IV (14:35)
[2025-01-06] MEDS: CUBICIN 10 MG IV (14:36)
[2025-01-06 15:10] VITALS: BP 142/86
[2025-01-06] MEDS: LOVENOX 40 MG SC (17:32)
[2025-01-06] MEDS: ZOLOFT 50 MG PO (22:27)
[2025-01-06 23:12] VITALS: BP 137/84
[2025-01-07 07:23] VITALS: BP 145/96
[2025-01-07] MEDS: VISBIOME 2 CAP PO (07:57)
[2025-01-07] MEDS: PROTONIX 40 MG PO (07:57)
[2025-01-07] MEDS: DETROL 2 MG PO (07:58)
--- NOTE | 2025-01-07 10:41 | W.PN.HOSP.TC ---
Today's Communication/Plan
-
ID recommendations for Abx
then CM for home infusion
Assessment / Plan
Assessment / Plan
74yo F with PMHX of GERD, HLD, breast CA, anxiety came for the follow up after her 2nd/3rd hammertoe corrrection with concern for worsening redness and swelling of 2nd toe. Was sent to [facility] for I&D with extraction of intramedullary implant. PeriOP
concern for presumed osteomyelitis without achieved surgical cure. XR concerning for OM due to partial erosion of the distal aspect of the proximal phalanx of the 2nd toe of the R foot. ID recommending 6 weeks of IV abx, pending final Cx
sensitivities as advised by ID
A/P:
#R 2nd toe OM
Bcx NTD
wound Cx - Staphylococcus schleiferi
Dapto/Ceftriaxone pending final ID recommendations
ID consult: plan for 6 weeks of Abx - final regimen to be determined, prelim - Rocephin and Dapto.CPK wnl, statin stopped
pain mgmt
NWB on RLE, use heel for transfers
ESR 33, CRP WNL
PT/OT when possible
repeated I&D on 01/04/25 by Podiatry
#Subclinical hyperthyroidism
Minimally suppressed TSH 0.38 - repeat TFT in 2-3 weeks
no need in medications as asymptomatic
#GERD
#HLD
#Anxiety d/o
cont home meds
DVT ppx lovenox
Full code
I have spent at least 38min reviewing chart,test results, communication with consultants and direct patient care
Anticipated Discharge: Within 24 hours
Subjective/Interval History
-
Date of Service: January 07, 2025
Objective Data
-
Vital Signs:
Vital Signs
Temp Pulse Resp BP Pulse Ox
98.6 F 83 16 145/96 98
01/07/25 07:23 01/07/25 07:23 01/07/25 07:23 01/07/25 07:23 01/07/25 07:23
I&O
01/06/25 01/07/25 01/08/25
06:59 06:59 06:59
Intake Total 1460 / 1460 1440 / 1440
Balance 1460 / 1460 1440 / 1440
Review of Systems
-
History Source: Patient
All other systems: Reviewed and negative
Physical Exam
-
General: Well Developed and No Apparent Distress
HEENT: Normocephalic
Musculoskeletal: No Cyanosis and No Edema
Neuro: Awake, Alert, Oriented and AO x 3
Psych: Calm
--- NOTE | 2025-01-07 11:29 | W.PN.ID1 ---
Date of Service
Date of Service: January 07, 2025
Today's Communication
Continue antibiotics. Narrow to ceftriaxone alone.
Assessment / Plan
Acute osteomyelitis of the right 2nd toe 2* Staph. schleiferi
- hardware removed 01/02/25
- note recent course of doxycycline and cefadroxil
-blood - no growth to date
- MRSA nasal screen negative
- 01/02 bone biopsy path : acute osteomyelitis
- 01/02 OR cx: rare CoNS (of note pt on outpatient abx)
CoNS often considered contaminant, but tends to infect hardware
Continue ceftriaxone. Discontinue further daptomycin.
New home infusion sheet placed on paper chart.
����������������������������������������������������������
Chief Complaint
-: Other (osteomyelitis right foot.)
Subjective / Review of Systems
Review of Systems: No Fever and No Chills
Vital Signs / Physical Exam
Vital Signs
Vital Signs
Temp Pulse Resp BP Pulse Ox
98.6 F 83 16 145/96 98
01/07/25 07:23 01/07/25 07:23 01/07/25 07:23 01/07/25 07:23 01/07/25 07:23
Physical Exam
Constitutional: No Acute Distress and Comfortable
Pulmonary: Clear and Non Labored
Gastrointestinal: Non Distended
Extremities: Negative Edema
Wound: Other (Right foot wrapped in Pratik wrap. No strikethrough.)
Neurological: AO x 3
Lines: PICC (LUE)
Objective Data
Lab Data
Lab Results
01/06/25 04:52
01/06/25 04:52
ESR 33 mm/hour (0-20) H 01/02/25 15:44
Estimated Creat Clear 59 ml/min 01/06/25 04:52
Total Bilirubin 0.3 mg/dl (0.2-1.3) 01/06/25 04:52
AST 55 U/L (14-36) H 01/06/25 04:52
ALT 44 U/L (0-35) H 01/06/25 04:52
Alkaline Phosphatase 103 U/L (38-126) 01/06/25 04:52
C-Reactive Protein < 5.00 mg/L (0.0-10.00) 01/02/25 15:44
Most recent labs reviewed.
Micro Results:
01/02/25 16:14 Anaerobic Culture - Final
Foot - Right NO ANAEROBES ISOLATED
01/02/25 16:14 Wound Culture - Final
Foot - Right Staphylococcus schleiferi
Gram Stain - Final
01/02/25 18:58 Blood Culture - Preliminary
Blood/Venous No Growth in 4 days- Final report to follow
01/02/25 18:44 Blood Culture - Preliminary
Blood/Venous No Growth in 4 days- Final report to follow
01/04/25 09:35 Nasal Screen MRSA (PCR) - Final
Nose MRSA not detected - performed by PCR methodology.
Wound/abscess/other Cult Final 01/02/2025
Rare Staphylococcus schleiferi
Organism 1 Staphylococcus schleiferi
1. Staphylococcus schleiferi
M.I.C. RX
--------- ---
Amoxicillin/Potas. Clavulanate <=4/2 S
Ampicillin <=2 R
Clindamycin <=0.5 R
Gentamicin <=4 S
Erythromycin >4 R
Levofloxacin <=1 S
Oxacillin <=0.25 S
Tetracycline >8 R
Trimethoprim/Sulfamethoxazole <=0.5/9.5 S
Vancomycin 0.5 S
Care Review
Plan reviewed with: Physician (Hospitalist)
[2025-01-07] MEDS: ROCEPHIN 2000 MG IV (12:10)
[2025-01-07] MEDS: STERILE WATER FOR INJECTION 20 ML IV (12:11)
[2025-01-07] MEDS: TYLENOL 650 MG PO ×2 (12:11→20:15)
[2025-01-07] MEDS: CUBICIN 10 MG IV (13:53)
[2025-01-07 15:17] VITALS: BP 125/85
[2025-01-07] MEDS: LOVENOX 40 MG SC (17:45)
[2025-01-07] MEDS: ZOLOFT 50 MG PO (22:29)
[2025-01-07 23:23] VITALS: BP 102/76
[2025-01-08] MEDS: TYLENOL 650 MG PO ×2 (01:56→08:15)
[2025-01-08 07:10] VITALS: BP 154/97
[2025-01-08] MEDS: DETROL 2 MG PO (08:11)
[2025-01-08] MEDS: VISBIOME 2 CAP PO (08:11)
[2025-01-08] MEDS: PROTONIX 40 MG PO (08:11)
--- NOTE | 2025-01-08 10:19 | W.PN.HOSP.TC ---
Today's Communication/Plan
-
dc when home IV abx setup
Assessment / Plan
Assessment / Plan
74yo F with PMHX of GERD, HLD, breast CA, anxiety came for the follow up after her 2nd/3rd hammertoe corrrection with concern for worsening redness and swelling of 2nd toe. Was sent to [facility] for I&D with extraction of intramedullary implant. PeriOP
concern for presumed osteomyelitis without achieved surgical cure. XR concerning for OM due to partial erosion of the distal aspect of the proximal phalanx of the 2nd toe of the R foot. ID recommending 6 weeks of IV abx, pending final Cx
sensitivities as advised by ID
Assessment:
R 2nd toe Osteomyelitis, acute - confirmed by 01/02 bone biopsy
- s/p debridement 01/02 with repeat washout/debridement/closure 01/04
- Heel WBAT to RLE with surgical shoe per ortho/podiatry
- wound per them: 3x weekly dressing changes with 1/4 inch packing (iodoform if possible) to proximal 2nd toe wound with 4x4 gauze pads, radha wrap, JOSIANE bandage
- wound culture with Staphylococcus schleiferi
- home IV Abx - Rocephin via PICC until 02/12. Weekly labs. d/w ID.
- home VN/PT/OT
Subclinical hyperthyroidism
- Minimally suppressed TSH 0.38 - repeat TFT in 2-3 weeks
- no need in medications as asymptomatic
GERD
- continue PPI
HLD
- resume at dc
Anxiety d/o
- cont home meds
DVT ppx: Lovenox
Code: Full
Anticipated Discharge: Within 24 hours
Subjective/Interval History
-
Date of Service: January 08, 2025
no complaints
Objective Data
-
Vital Signs:
Vital Signs
Temp Pulse Resp BP Pulse Ox
97.6 F 84 16 154/97 98
01/08/25 07:10 01/08/25 07:10 01/08/25 07:10 01/08/25 07:10 01/08/25 07:10
I&O
01/07/25 01/08/25 01/09/25
06:59 06:59 06:59
Intake Total 1440 / 1440 1600 / 1600
Balance 1440 / 1440 1600 / 1600
Physical Exam
-
General: No Apparent Distress
HEENT: Normocephalic and Atraumatic
Respiratory: Clear to Auscultation; Negative Wheezes
Cardiac: Regular Rhythm and S1/S2
GI: Soft and Nontender
Musculoskeletal: Other (R foot in boot. Dressings in place)
Neuro: AO x 3
Psych: Calm
Data Reviewed
-
Total Time Spent with Patient (in minutes): 42
Labs: Labs Reviewed by me
--- NOTE | 2025-01-08 10:34 | CM ---
Addendum entered by Fabiola Garg 01/08/25 14:22:
Met with patient at bedside to discuss discharge plan
IMM benefit explained; form signed @ 1350
Plan: Discharge to home with home infusion and home health services
[facility]
Addendum entered by Fabiola Garg 01/08/25 13:31:
per [facility] RN, home infusion teaching completed
[facility] notified; VN confirmed
[facility]
Original Note:
Per Attending, patient stable for discharge if coordination of home infusion and home health services can be supported; otherwise patient will discharge tomorrow
New Prescription for IV antibiotic and updated clinical notes faxed to [facility]
CM spoke via phone with [facility] liaison
Plan: Discharge to home with home infusion and home health services
[facility]
--- NOTE | 2025-01-08 11:07 | W.DS.TRANS ---
DC Summary - Silver W[employer]
-
Discharge Instructions:
Discharge Diagnosis/Procedures R 2nd toe acute osteomyelitis
Diet Regular
Activity As tolerated
Additional Activity Heel WBAT to RLE with surgical shoe per ortho/
podiatry
Bathing Restrictions None
Blood Work weekly labs via PICC - home infusion service
will draw per ID script
Other Services PT,VN,OT
Instructions:
Stand-Alone Forms:
Changes to Home Medications: No
Discharge Medications:
DC Medications w/original date entered in [employer]
atorvastatin 40 mg tablet (Lipitor) 40 mg PO DAILY 01/02/25
omeprazole 40 mg capsule,delayed release 40 mg PO DAILY 01/02/25
sertraline 50 mg tablet (Zoloft) 50 mg PO DAILY 01/02/25
tolterodine 2 mg tablet (Detrol) 2 mg PO DAILY 01/02/25
Lactobac/Bifidobac [Visbiome] 2 cap PO DAILY #100 caps 01/08/25
ceftriaxone 2 gram solution for injection 2,000 mg IV Q24H #36 ea 01/08/25
Home Medication Changes
Pending Results: No
Total time spent discharging patient (in min): 42
[2025-01-08] MEDS: STERILE WATER FOR INJECTION 20 ML IV (11:40)
[2025-01-08] MEDS: ROCEPHIN 2000 MG IV (11:40)
--- NOTE | 2025-01-08 11:43 | W.PN.UPDATE ---
Update Note
Progress Note Update
spoke at length with by phone
chart reviewed
agree with ceftriaxone course
restarted atorvastatin
try to take ceftriaxone around the same time each day, suggest moving to 8am for ease
follow up with podiatry, follow up with ID PRN
stable for dc when home iV antibiotics set up
[2025-01-08 14:38] VITALS: BP 125/84
== END 2025-01-08 15:10 | disposition home health service (06) | DRG 478 ==
LOC: 2 NORTH 19:17
PROVIDERS: Radiology Diagnostic Radiology; Student in an Organized Health Care Education/Training Program; ADMITTING PHYSICIAN Internal Medicine; ATTENDING PHYSICIAN Internal Medicine; CONSULT PHYSICIAN Student in an Organized Health Care Education/Training Program; FAMILY PHYSICIAN Internal Medicine
PROC: 0QBQ0ZX Excision of Right Toe Phalanx, Open Approach, Diagnostic (ICD-10-PCS; 2025-01-02)
PROC: 0J9Q0ZZ Drainage of Right Foot Subcutaneous Tissue and Fascia, Open Approach (ICD-10-PCS; 2025-01-02)
PROC: 0SP Lower Joints, Removal (ICD-10-PCS; 2025-01-02)
PROC: 0QBQ0ZZ Excision of Right Toe Phalanx, Open Approach (ICD-10-PCS; 2025-01-04)
PROC: 02HV33Z Insertion of Infusion Device into Superior Vena Cava, Percutaneous Approach (ICD-10-PCS; 2025-01-04)
DX: T84.59XA Infection and inflammatory reaction due to other internal joint prosthesis, initial encounter (principal); L02.611 Cutaneous abscess of right foot; M86.171 Other acute osteomyelitis, right ankle and foot; M00.071 Staphylococcal arthritis, right ankle and foot; K21.9 Gastro-esophageal reflux disease without esophagitis; E05.90 Thyrotoxicosis, unspecified without thyrotoxic crisis or storm; E78.5 Hyperlipidemia, unspecified; F41.9 Anxiety disorder, unspecified; M20.41 Other hammer toe(s) (acquired), right foot; B95.7 Other staphylococcus as the cause of diseases classified elsewhere; Y83.1 Surgical operation with implant of artificial internal device as the cause of abnormal reaction of the patient, or of later complication, without mention of misadventure at the time of the procedure; Y92.9 Unspecified place or not applicable; Z85.3 Personal history of malignant neoplasm of breast
CPT/HCPCS: 88304; 88305; 88311; 71045; 73620; 80053; 82550; 82728; 83036; 83540; 83550; 83735; 84439; 84443; 84481; 85025; 85652; 86140; 87040; 87070; 87075; 87147; 87186; 87205; 87641; 93005; 97116; 97166; 97530; J0878